=== PATIENT | male | born 1990 | race Caucasian/White ===

== ENCOUNTER 2019-03-25 18:17 | Emergency (ER) | payer OTHER, SELFPAY | END 2019-03-25 21:07 | disposition home or self-care (01) | PROVIDERS: Emergency Provider Physician Assistant; Visit Provider Physician Assistant | DX: S22.088A Other fracture of T11-T12 vertebra, initial encounter for closed fracture (principal); W01.0XXA Fall on same level from slipping, tripping and stumbling without subsequent striking against object, initial encounter; Y99.0 Civilian activity done for income or pay | CPT/HCPCS: 72131; 96372; 96374; 99284; J2270 ==

== ENCOUNTER 2019-05-08 10:43 | Outpatient (CLI) | payer OTHER, SELFPAY ==
--- NOTE | 2019-05-08 11:00 | CT_ITS ---
WS: [id number] CT THORACIC SPINE HISTORY: pain/follow up from original injury TECHNIQUE: Contiguous 2.5 mm axial images are reviewed to thoracic spine. Images are reformatted in s agittal and coronal planes. All CT scans at [facility] use at least one of these dose opt imization techniques: automated exposure control; mA and/or kV adjustment per patient size (includes targeted exams where dose is matched to clinical indication); or iterative reconstruction. DLP: 1296.08 mGycm COMPARISON: 10/10/2017 Mild straightening of the normal lumbar lordosis. T11 Schmorl's node defect is stable. No acute fract ure is identified. Similar appearance to the vertebral bodies as seen on the prior study of 10/10/2017 . Recently described fracture through the RIGHT T12 or L1 transverse process. 12 thoracic vertebral b odies are identified which are rib-bearing. The first nonrib-bearing vertebral bodies L1 which contai ns the previously described fracture. Irregardless of the numbering system there has been no interval change. No acute fractures are identified. No significant central or foraminal narrowing throughout the thoracic spine. Mild chronic disc space narrowing at T10-11. CT/CT thoracic spin wo con* [id number] IMPRESSION: 1. Interval partial healing of the nondisplaced fracture involving the RIGHT L 1 transverse process. There are 12 thoracic vertebral bodies and the first nonr ib-bearing vertebral body is L1 which contains a partially healed fracture. 2. No new fracture or progression of disease. Mild degenerative disc disease a t T10-11.
== END 2019-05-08 10:44 | disposition home or self-care (01) ==
LOC: RADWPI 10:46
PROVIDERS: PCP General Practice; Visit Provider Family Medicine
DX: S22.089A Unspecified fracture of T11-T12 vertebra, initial encounter for closed fracture (principal); X58.XXXA Exposure to other specified factors, initial encounter
CPT/HCPCS: 72128

== ENCOUNTER → 2021-04-09 08:33 | Outpatient (BNVA) | payer OTHER, SELFPAY | PROVIDERS: PCP Nurse Practitioner Family; Visit Provider Nurse Practitioner Family | DX: Z20.828 Contact with and (suspected) exposure to other viral communicable diseases (principal) | CPT/HCPCS: 87635 ==

== ENCOUNTER → 2022-01-15 11:06 | Outpatient (BNVA) | payer OTHER, SELFPAY | PROVIDERS: PCP Nurse Practitioner Family; Visit Provider Nurse Practitioner Family | DX: M79.671 Pain in right foot (principal); S97.81XA Crushing injury of right foot, initial encounter; X58.XXXA Exposure to other specified factors, initial encounter | CPT/HCPCS: 73630 ==

== ENCOUNTER → 2022-01-21 12:46 | Outpatient (BNVA) | payer OTHER, SELFPAY | PROVIDERS: PCP Emergency Medicine Emergency Medical Services; Referring Provider Emergency Medicine Emergency Medical Services; Visit Provider Podiatrist Foot & Ankle Surgery | DX: S97.81XA Crushing injury of right foot, initial encounter (principal); X58.XXXA Exposure to other specified factors, initial encounter; M25.372 Other instability, left ankle | CPT/HCPCS: 73610; 99204 ==

== ENCOUNTER 2022-03-25 13:32 | Outpatient (CLI) | payer OTHER, SELFPAY ==
--- NOTE | 2022-03-25 13:45 | MR_ITS ---
WS: [id number] MRI LEFT ANKLE without CONTRAST. COMPARISON: None Multiplanar, multisequence imaging is performed without contrast. Abnormal signal involving several of the bones involving the foot. Increased T2 signal consistent wit h edema in the anterior process of the calcaneus. There is an adjacent 4 mm mass which follows bone s ignal, suspect this is probably a small avulsion fracture from the anterior calcaneus. There is edema within the adjacent navicular and also the cuboid. There is increased T2 signal extending between th e articulation between the navicular and the calcaneus and the cuboid. There is no signal abnormality in the sinus Tarsi. The remaining calcaneus is negative. Ligaments and tendons around the ankle joint are normal. Achilles tendon is negative. No talar dome l esions. MR/MR ankle LT wo con* [id number] IMPRESSION: 1. Soft tissue and bone signal abnormalities are noted in the anterior calcane al process, adjacent cuboid and the adjacent navicular. There is a loose body w hich I suspect is probably an avulsion fracture from the anterior calcaneal pro cess. Considering the marrow edema in the osseous structures and soft tissues t here is likely a component of instability present. 2. Consider reevaluation by CT, noncontrast of the ankle to better evaluate os seous abnormalities.
== END 2022-03-25 13:33 | disposition home or self-care (01) ==
LOC: RAD 13:32
PROVIDERS: PCP Emergency Medicine Emergency Medical Services; Visit Provider Podiatrist Foot & Ankle Surgery
DX: M25.572 Pain in left ankle and joints of left foot (principal)
CPT/HCPCS: 73721

== ENCOUNTER 2023-01-17 08:12 | Emergency (ER) | payer OTHER, SELFPAY ==
[2023-01-17 08:12] VITALS: BP 145/79; PULSE 79; RESP 20; TEMP 37; O2SAT 98; BMI 30.6
--- NOTE | 2023-01-17 08:18 | XR_ITS ---
WS: [id number] Exam: [place] [id number] Date/Time of Exam: 01/17/2023 8:58 AM Reason For Exam: trauma There is a midshaft fracture of the LEFT clavicle with [id number] apposition. No other fractures ar e noted. Soft tissues are unremarkable. IMPRESSION: 1. Mid shaft LEFT clavicle fracture with [id number] apposition.
--- NOTE | 2023-01-17 08:18 | CT_ITS ---
WS: [id number] CT CHEST, ABDOMEN AND PELVIS WITH CONTRAST HISTORY: trauma TECHNIQUE: Contiguous 5 mm axial imaging performed through the chest, abdomen and pelvis with IV cont rast, oral contrast has not been provided. Coronal and sagittal reformats chest. Coronal and sagittal reformats through the abdomen and pelvis. All CT scans at [facility] use at least one of the se dose optimization techniques: automated exposure control; mA and/or kV adjustment per patient size (includes targeted exams where dose is matched to clinical indication); or iterative reconstruction. CONTRAST: Omnipaque 350; 100 mL IV. DLP: 2006.29 mGy.cm COMPARISON: None available. Chest CT: Breathing motion artifact. Poor inspiration. No pulmonary mass or contusion. No laceration or pneumothorax. No pericardial or pleural effusions. Thoracic aorta appears normal size. Motion segundo fact due to the breathing causing significant limitation of the ascending aorta. No mediastinal hemat raz. Very mild increased attenuation in the anterior mediastinum which is probably related to small a mount of venous bleeding or residual thymus. Heart is normal size. Minimally displaced fracture involving the mid LEFT clavicle. No additional fractures. No rib facture . The thoracic vertebral bodies appear normal. Abdomen CT: Liver and spleen are intact. No laceration or hematoma. Negative gallbladder and adrenal glands. Normal pancreas. Normal renal enhancement. 5 mm cyst lower pole RIGHT kidney. Normal aorta. N o mesenteric injury identified. No GI tract obstruction or abnormality. Ventral abdominal wall hernia . There are several small lymph nodes in the RIGHT lower quadrant with the largest measuring 9 mm. 5 nonrib-bearing vertebral bodies. S1 is lumbarized. Acute fracture involving the anterior superior endplate of L5. No retropulsion of the vertebral body. There is also mild anterior wedging involving the superior endplate of L2 indeterminate for acute fr acture. Pelvic CT: No free fluid. Urinary bladder is negative. No soft tissue hematoma or contusion. IMPRESSION: 1. Acute minimally displaced mid LEFT clavicle fracture. 2. Acute L5 anterior superior endplate fracture. No retropulsion. 3. Very minimal anterior wedging of L2, age indeterminate fracture. 4. Thoracic aorta is poorly visualized due to motion artifact. No hematoma identified. 5. There is a small amount of fat stranding in the anterior mediastinum which is probably a small marcio unt of venous bleeding or residual thymic tissue. 6. No visceral organ injury. 7. No ascites or hemoperitoneum. 8. no pneumothorax or pulmonary contusion.
--- NOTE | 2023-01-17 08:18 | CT_ITS ---
WS: [id number] CT CERVICAL SPINE HISTORY: trauma TECHNIQUE: Contiguous 2.0 mm axial imaging performed through the entire cervical spine. Sagittal and coronal reformats also performed. All CT scans at [facility] use at least one of these dose o ptimization techniques: automated exposure control; mA and/or kV adjustment per patient size (include s targeted exams where dose is matched to clinical indication); or iterative reconstruction. DLP: 1241.39 mGy.cm COMPARISON: None available. Normal cervical alignment. Craniocervical junction, atlantodental interval and C1-C2 alignment is nor mal. C2-C3: Normal. C3-C4: Normal. C4-C5: Small vertebral osteophyte. No stenosis. C5-C6: Normal. C6-C7: Normal. C7-T1: Normal. Small bilateral cervical chain lymph nodes. Lung apices are clear. Noted on the localizer image is a fracture through the mid LEFT clavicle. IMPRESSION: 1. No cervical spine fracture identified. 2. Seen on the localizer image is a minimally displaced fracture through the mid LEFT clavicle.
--- NOTE | 2023-01-17 08:19 | CT_ITS ---
WS: [id number] CT HEAD NONCONTRAST HISTORY: trauma TECHNIQUE: Contiguous axial imaging performed through the brain in 2.5 mm imaging. Bone and soft tiss ue windows. Sagittal and coronal reformats reviewed. All CT scans at [facility] use at least one of these dose optimization techniques: automated exposure control; mA and/or kV adjustment per pa tient size (includes targeted exams where dose is matched to clinical indication); or iterative recon struction. DLP: 1241.39 mGy.cm COMPARISON: 10/10/2017 No acute intracranial hemorrhage, midline shift or mass effect. No atrophy or prior infarcts or herniation. Ventricles: Normal size with no hydrocephalus. No inferior displacement of cerebellar tonsils. Paranasal sinuses: Marked mucoperiosteal thickening throughout the maxillary sinuses. The sinuses kelly ear intact. Extension of the mucoperiosteal thickening into the ethmoid air cells. Zygomatic arches a nd visualized nasal bones are intact. Mastoid air cells: Well pneumatized. Calvarium and scalp: Skull is intact with no soft tissue edema or swelling. IMPRESSION: 1. No acute intracranial hemorrhage or edema. 2. Marked mucoperiosteal thickening and soft tissue throughout the ethmoid and maxillary sinuses. Fav or this is related to chronic sinus disease. No fractures identified.
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
[2023-01-17 08:41] LABS: Basophils # 0.1 10^3/uL (0.0-0.1); Basophils % 1.2 %; Eosinophils # 0.3 10^3/uL (0.0-0.8); Eosinophils % 3.7 %; Lymphocytes % 38.8 %; Mean Corpuscular HGB Conc 34.7 g/dL (30-55); Mean Corpuscular Volume 86.5 fl (82-101); Mean Platelet Volume 9.1 fL (7.4-10.4); Monocytes # 0.2 10^3/uL (0.2-0.9); Monocytes % 3.2 %; Neutrophils # 3.84 10^3/uL (1.8-7.7); Neutrophils % 50.3 %; Nucleated Red Blood Cells % 0 %; Platelet Count 259 10^3/cmm (157-399); Red Cell Distribution Width 11.9 % (12.1-15.1); White Blood Count 7.61 10^3/uL (3.29-11.43)
[2023-01-17 09:04] LABS: Alanine Aminotransferase 23 U/L (0-41); Albumin Level 4.4 g/dL (3.5-5.2); Alkaline Phosphatase 64 U/L (40-130); Anion Gap 10.6 (5-19); Aspartate Amino Transferase 23 U/L (0-40); Blood Urea Nitrogen 12 mg/dL (6-20); Calcium 9.2 mg/dL (8.5-10.5); Carbon Dioxide 27 mmol/L (22-29); Chloride 106 mmol/L (98-107); Globulin 2.7 g/dL (1.3-4.6); Glucose 128 mg/dL (65-115); Osmolality Calculated 291 mOsm/kg (285-295); Potassium 3.6 mmol/L (3.5-5.1); Sodium 140 mmol/L (136-145); Total Bilirubin 0.3 mg/dL (0.15-1.2); Total Protein 7.1 g/dL (6.6-8.7)
[2023-01-17] MEDS: iohexol 350 mg/mL 500 mL Btl (per mL) IV (09:06)
[2023-01-17] MEDS: sodium chloride 0.9% 1,000 ML 999 ML IV (09:10)
[2023-01-17] MEDS: tetanus-dipt-pertussis 0.5 mL SDV IM (09:12)
[2023-01-17 09:38] VITALS: RESP 18; O2SAT 98
[2023-01-17] MEDS: morphine 4 mg/mL SDV 1 mL 2 MG IVP ×2 (09:38→11:47)
[2023-01-17 09:41] VITALS: BP 145/79; PULSE 88; RESP 18; O2SAT 97
[2023-01-17 10:04] LABS: Add Urine Microscopic? NO; Charge for UA Resulting for Rev
[2023-01-17 10:12] LABS: Bilirubin Urine Neg (Negative); Blood Urine Neg (Negative); Glucose Urine UA Norm (Normal); Ketones Urine Negative (Negative); Leukocyte Esterase Urine Negative (Negative); Nitrate Urine Negative (Negative); Protein Urine Neg (Negative); Specific Gravity, Urine 1.015 (1.005-1.030); Urine Appearance Clear (CLEAR); Urine Color Yellow (Yellow); Urobilinogen Urine Norm (Negative); pH Urine 6 (5-7)
== END 2023-01-17 12:19 | disposition home or self-care (01) ==
PROVIDERS: Emergency Provider Family Medicine; PCP Emergency Medicine Emergency Medical Services
DX: S42.022A Displaced fracture of shaft of left clavicle, initial encounter for closed fracture (principal); S32.058A Other fracture of fifth lumbar vertebra, initial encounter for closed fracture; S32.020A Wedge compression fracture of second lumbar vertebra, initial encounter for closed fracture; E78.5 Hyperlipidemia, unspecified; V89.2XXA Person injured in unspecified motor-vehicle accident, traffic, initial encounter; Z23 Encounter for immunization
CPT/HCPCS: 70450; 71260; 72125; 73000; 74177; 80053; 81003; 85025; 86850; 86900; 90471; 90715; 96361; 96374; 96376; 99285; J2270; J7030; Q9967

== ENCOUNTER → 2023-01-25 09:50 | Outpatient (BNVA) | payer OTHER, SELFPAY | PROVIDERS: PCP Emergency Medicine Emergency Medical Services; Visit Provider Physician Assistant | DX: V89.2XXA Person injured in unspecified motor-vehicle accident, traffic, initial encounter (principal); S42.022A Displaced fracture of shaft of left clavicle, initial encounter for closed fracture; S32.020A Wedge compression fracture of second lumbar vertebra, initial encounter for closed fracture; S32.050A Wedge compression fracture of fifth lumbar vertebra, initial encounter for closed fracture | CPT/HCPCS: 72110; 73000 ==

== ENCOUNTER 2023-02-01 14:05 | Outpatient (CLI) | payer OTHER, SELFPAY ==
--- NOTE | 2023-02-01 14:30 | MR_ITS ---
WS: [id number] MRI LUMBAR SPINE NONCONTRAST TECHNIQUE: Sagittal T1, T2 and STIR imaging. Axial T1 and T2 imaging. CLINICAL INFORMATION: fracture COMPARISON: CT 2019 FINDINGS: Mild lumbar curve. Mild compression superior endplates L2 and L5 with edema. Mild loss vertebral body height with slight anterior wedging. No retropulsion. L1-L2: Mild annular bulging. Mild facet arthropathy. Spinal canal and foramen are patent. L2-L3: Mild annular bulging. Mild facet arthropathy. Spinal canal and foramen are patent. L3-L4: Mild annular bulging. Mild facet arthropathy. Spinal canal and foramen are patent. L4-L5: Mild annular bulging with slight effacement of the ventral thecal sac. Moderate facet arthropa thy. Spinal canal and foramen are patent. L5-S1: Mild annular bulging with slight effacement of the ventral thecal sac. Moderate facet arthropa thy. Spinal canal and foramen are patent. Visualized pelvic bony structures: Normal. Paravertebral soft tissues: Normal. IMPRESSION: 1. Acute compression fracture super endplates L2 and L5 with associated edema and slight anterior we dging. Mild loss of vertebral body height. No retropulsion. 2. No significant central canal stenosis. 3. Mild annular bulging at L1-2, L2-3, L3-4, and L4-5 without significant spinal canal or foraminal narrowing. 4. Counting performed from the craniocervical junction. S1 has a transitional appearance.
== END 2023-02-01 14:06 | disposition home or self-care (01) ==
LOC: RAD 14:05
PROVIDERS: PCP Emergency Medicine Emergency Medical Services; Visit Provider Physician Assistant
DX: S32.020A Wedge compression fracture of second lumbar vertebra, initial encounter for closed fracture (principal); S32.050A Wedge compression fracture of fifth lumbar vertebra, initial encounter for closed fracture; V43.92XA Unspecified car occupant injured in collision with other type car in traffic accident, initial encounter; Y92.414 Local residential or business street as the place of occurrence of the external cause
CPT/HCPCS: 72148

== ENCOUNTER → 2023-02-08 10:50 | Outpatient (BNVA) | payer OTHER, SELFPAY | PROVIDERS: PCP Emergency Medicine Emergency Medical Services; Visit Provider Physician Assistant | DX: S42.002A Fracture of unspecified part of left clavicle, initial encounter for closed fracture (principal); X58.XXXA Exposure to other specified factors, initial encounter | CPT/HCPCS: 73000 ==

== ENCOUNTER 2023-02-08 11:39 | Outpatient (CLI) | payer OTHER, SELFPAY | END 2023-02-08 11:40 | disposition home or self-care (01) | LOC: SPT 11:40 | PROVIDERS: PCP Emergency Medicine Emergency Medical Services; Visit Provider Physician Assistant | DX: Z46.89 Encounter for fitting and adjustment of other specified devices (principal); S32.059D Unspecified fracture of fifth lumbar vertebra, subsequent encounter for fracture with routine healing; S32.029D Unspecified fracture of second lumbar vertebra, subsequent encounter for fracture with routine healing; X58.XXXD Exposure to other specified factors, subsequent encounter | CPT/HCPCS: 97760; L0637 ==

== ENCOUNTER 2023-02-11 10:15 | Day surgery (SDC) | payer OTHER, SELFPAY ==
[2023-02-11] VITALS (15 sets, daily range): BP systolic 92–151; BP diastolic 50–103; PULSE 56–85; RESP 16–18; TEMP 35.4–37.1; O2SAT 92–98; BMI 30.6
--- NOTE | 2023-02-11 | XR_ITS ---
WS: [id number] C-ARM RADIOGRAPHS LEFT CLAVICLE; 5 IMAGES HISTORY: OR PICS-DONE ON 02/11 COMPARISON: 02/08/2023 Intraoperative imaging during plate and screw fixation and reduction of the LEFT clavicle fracture. A lignment appears appropriate on this evaluation. IMPRESSION: ORIF plate and screw fixation LEFT clavicle fracture.
--- NOTE | 2023-02-11 10:44 | ANES.PREANE2 ---
Pre-Anesthetic Assessment Height/Weight: Height 1.85 m Weight 105.233 kg Temp Pulse Resp BP Pulse Ox O2 Del Method 98.7 F 84 16 151/103 96 Room Air 02/11/23 10:38 02/11/23 10:38 02/11/23 10:38 02/11/23 10:38 02/11/23 10:38 02/11/23 10:38 Preop Diagnosis: Displaced left clavicle fracture Operation Date: 02/11/23 12:05 Proposed Procedures p left ORIF Clavicle(Left) - Rafael Ribera, Familial anesthetic complications: None Was Beta Umesh taken within 24 hours: N/A Was Clonidine taken within 24 hours: N/A Last intake: Intake Last Liquid Date 02/10/23 Last Liquid Time 22:00 Last Solid Date 02/10/23 Last Solid Time 19:00 Social No alcohol and No tobacco Exam alert, oriented x 3, clear to auscultation bilaterally and regular rate & rhythm Airway Mallampati: Class II Dentition: full Metabolic Hyperlipidemia Anesthetic Plan ASA status: 2 Anesthesia: General Risk of > 500 ml blood loss (7ml/kg in children): No Medications/Allergies Home Medications Medication Instructions Recorded Confirmed Last Taken Type cetirizine 10 mg tablet (Zyrtec) 10 mg PO DAILY 03/28/19 02/10/23 02/10/23 History Custom Orthotics #1 ea 01/21/22 02/10/23 Unknown Rx cholecalciferol (vitamin D3) 50 50 mcg PO DAILY 01/17/23 02/10/23 02/10/23 History mcg (2,000 unit) capsule (Vitamin D3) tizanidine 4 mg tablet 4 mg PO Q6H PRN muscle spasticity 01/25/23 02/10/23 Unknown Rx #20 tabs TLSO BRACE. #1 ea 02/08/23 02/10/23 Unknown Rx magnesium 30 mg tablet 30 mg PO DAILY 02/10/23 02/10/23 02/10/23 History Allergies Allergy/AdvReac Type Severity Reaction Status Date / Time No Known Allergies Allergy Verified 02/11/23 10:33 [facility] Anesthesia Medical History Hyperlipidemia Social History Smoking and tobacco/nicotine status: never used tobacco/nicotine Alcohol intake: never Data Anesthesia Cardiac Studies: No Data to Display
[2023-02-11] MEDS: sodium chloride 0.9% 1,000 ML 30 ML IV (10:57)
[2023-02-11] MEDS: scopolamine 1.5 Patch 1 PATCH TRANSDERMA (11:35)
--- NOTE | 2023-02-11 12:02 | W.PM.OPSUD ---
Surgery/Procedure H&P Update DATE OF PROCEDURE: February 11, 2023 DATE H&P PERFORMED: 02/08/23 H&P UPDATE INFORMATION: I have reviewed H&P completed within last 30 days, I have examined patient prior to procedure and No changes to prior documentation PREOP DIAGNOSIS: Displaced left clavicle fracture PLANNED PROCEDURE: Operation Date: 02/11/23 12:05 Proposed Procedures p left ORIF Clavicle(Left) - Rafael Ribera DO
[2023-02-11] MEDS: ceFAZolin 2,000 MG in sodium chloride 0.9% (plus) 50 ML 100 MG IV (12:15)
[2023-02-11] MEDS: lidocaine-epi 1% 20 mL INJ INJECTION (12:44)
--- NOTE | 2023-02-11 13:39 | P.OP_ITS ---
Operative Report Date of procedure: February 11, 2023 Pre-op diagnosis: Left clavicle fracture Post-op diagnosis: same Procedure done: Open reduction internal fixation of left clavicle fracture Surgeon: Rafael Ribera DO Shipping And Receiving Assistant: Mk Clemons Shipping And Receiving Assistant: The dental assistant instructor, Mk Clemons, MARC was needed for his expertise with fracture care. He was important and necessary throughout the procedure to complete in a safe and timely manner. He assisted with patient positioning prepping and draping tissue retraction suctioning of the operative field and tissue closure Estimated blood loss (mL): 50 Procedure: Open reduction internal fixation of left clavicle fracture Patient is brought to the op suite after undergoing anesthesia was placed in supine position. All areas impingement well-padded. Skin was made over the clavicle. Dissection was made down to the fracture. Elevator was used to release the muscle off of the bone with a subperiosteal dissection and then the fracture ends were identified. Fracture ends were cleaned some early callus formation. This was scraped off using curettes and rongeur. Fracture fragments were then reduced to lag screws were placed across the fracture fragments. And then a superior plate from Ruben was placed. 3 screws were placed proximal and distal to the fracture AP lateral and serendipitous view of the clavicle showed good position of all the screws and hardware. Fracture look to be reduced. Wounds were then irrigated and closed with Vicryl and Monocryl suture. Sterile dressings were applied and patient was transferred to the PACU in stable condition.
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
[2023-02-11] MEDS: HYDROcodone-acetaminophen 5-325 mg Tablet 1 TAB PO (15:31)
--- NOTE | 2023-02-11 15:45 | ANE.PACU2 ---
Inpatient post-anesthesia follow up: Airway intact: Yes Vital signs: Temperature 96 F Pulse Rate 57 Respiratory Rate 16 Blood Pressure 116/77 Pulse Oximetry 95 Oxygen Delivery Me thod Room Air Oxygen Flow Rate 6 Fraction of Inspir ed Oxygen Hydration adequate: Yes Nausea and vomiting: No Pain level: 1 Mental status: Baseline
== END 2023-02-11 15:48 | disposition home or self-care (01) ==
PROVIDERS: PCP Emergency Medicine Emergency Medical Services; Visit Provider Orthopaedic Surgery
PROC: (CPT 23515; principal; 2023-02-11 12:05)
DX: S42.002A Fracture of unspecified part of left clavicle, initial encounter for closed fracture (principal); X58.XXXA Exposure to other specified factors, initial encounter; E78.5 Hyperlipidemia, unspecified
CPT/HCPCS: 23515; 73000; 76000; C1713; J0131; J0690; J1100; J1170; J2250; J2405; J2704; J3010; J7030

== ENCOUNTER → 2023-02-24 13:21 | Outpatient (BNVA) | payer OTHER, SELFPAY | PROVIDERS: PCP Emergency Medicine Emergency Medical Services; Visit Provider Physician Assistant | DX: S32.050D Wedge compression fracture of fifth lumbar vertebra, subsequent encounter for fracture with routine healing; S32.020D Wedge compression fracture of second lumbar vertebra, subsequent encounter for fracture with routine healing; S42.022A Displaced fracture of shaft of left clavicle, initial encounter for closed fracture; X58.XXXD Exposure to other specified factors, subsequent encounter; X58.XXXA Exposure to other specified factors, initial encounter | CPT/HCPCS: 72100; 73000 ==

== ENCOUNTER → 2023-03-24 09:30 | Outpatient (BNVA) | payer OTHER, SELFPAY | PROVIDERS: PCP Emergency Medicine Emergency Medical Services; Visit Provider Physician Assistant | DX: S42.002D Fracture of unspecified part of left clavicle, subsequent encounter for fracture with routine healing (principal); S32.020D Wedge compression fracture of second lumbar vertebra, subsequent encounter for fracture with routine healing; S32.050D Wedge compression fracture of fifth lumbar vertebra, subsequent encounter for fracture with routine healing; X58.XXXD Exposure to other specified factors, subsequent encounter | CPT/HCPCS: 73000 ==

== ENCOUNTER → 2023-04-26 14:35 | Outpatient (BNVA) | payer OTHER, SELFPAY | PROVIDERS: PCP Emergency Medicine Emergency Medical Services; Visit Provider Orthopaedic Surgery | DX: S32.020D Wedge compression fracture of second lumbar vertebra, subsequent encounter for fracture with routine healing (principal); S32.050D Wedge compression fracture of fifth lumbar vertebra, subsequent encounter for fracture with routine healing; X58.XXXD Exposure to other specified factors, subsequent encounter | CPT/HCPCS: 73000 ==

== ENCOUNTER 2023-05-05 06:00 | Outpatient (RCR) | payer OTHER, SELFPAY | END 2023-05-26 23:59 | disposition home or self-care (01) | LOC: TPT 06:00 | PROVIDERS: Visit Provider Orthopaedic Surgery | DX: M25.512 Pain in left shoulder (principal); M54.50 Low back pain, unspecified | CPT/HCPCS: 97110; 97162 ==

== ENCOUNTER 2023-05-27 06:00 | Outpatient (RCR) | payer OTHER, SELFPAY | END 2023-06-26 23:59 | disposition home or self-care (01) | LOC: TPT 06:00 | PROVIDERS: Visit Provider Orthopaedic Surgery | DX: M25.512 Pain in left shoulder (principal); M54.50 Low back pain, unspecified | CPT/HCPCS: 97110 ==

== ENCOUNTER → 2023-06-07 14:30 | Outpatient (BNVA) | payer OTHER, SELFPAY | PROVIDERS: Visit Provider Orthopaedic Surgery | DX: S42.022A Displaced fracture of shaft of left clavicle, initial encounter for closed fracture; X58.XXXA Exposure to other specified factors, initial encounter | CPT/HCPCS: 73000 ==

== ENCOUNTER → 2024-01-11 10:18 | Outpatient (BNVA) | payer OTHER, SELFPAY | PROVIDERS: Visit Provider Podiatrist Foot & Ankle Surgery | DX: M79.672 Pain in left foot (principal); M25.572 Pain in left ankle and joints of left foot; Q66.71 Congenital pes cavus, right foot; Q66.72 Congenital pes cavus, left foot; R03.0 Elevated blood-pressure reading, without diagnosis of hypertension | CPT/HCPCS: 73610; 73620; 99213 ==

== ENCOUNTER 2024-01-18 11:44 | Outpatient (CLI) | payer OTHER, SELFPAY ==
--- NOTE | 2024-01-18 11:49 | USCV_ITS ---
BandaOtisSteve Age: 34 Gender: M : 1990 Exam Date: 01/18/2024 12:02 Ordering Phys: Steffi Altman APRN Technologist: CT Exam [place] [facility] [place] Indication: BP: 119 / 80 HR: 72 Rhythm: Sinus Technical Quality: Adequate MEASUREMENTS (Male / Female) Normal Values 2D ECHO LVOT Diameter 2.2 cm LV Ejection Fraction MOD 4C 68.7 % LV Ejection Fraction MOD 2C 58.2 % LV Ejection Fraction 2C AL 58.0 % LA Diameter 3.4 cm RA Systolic Volume 4C AL 29.4 ml RA Systolic Volume 4C MOD 29.3 ml LA Sys Volume AL 56.4 cm cubed LA Sys Volume Index AL 23.0 cm cubed/m squared Aorta at Sinotubular Diameter 2.6 cm M-MODE LA Ao Ratio MM 1.7 AV Cusp Separation MM 2.4 cm DOPPLER AV Peak Velocity 127.0 cm/s LVOT Peak Velocity 103.0 cm/s AV Area Cont Eq vti 3.4 cm squared AV Area Cont Eq pk 3.2 cm squared MV Peak Velocity 73.0 cm/s MV Area PHT 2.7 cm squared Mitral E to A Ratio 1.3 TV Peak Velocity 145.0 cm/s TR Peak Velocity 180.0 cm/s TR Peak Gradient 13.0 mmHg TV Peak E Velocity 91.0 cm/s Right Atrial Pressure 3.0 mmHg Pulmonary Artery Systolic Pressu 16.0 mmHg PV Peak Velocity 120.5 cm/s FINDINGS Left Ventricle Normal left ventricular size and systolic function, EF 58% . No regional wall motion abnormalities. Right Ventricle The right ventricle is normal in size and function. Right Atrium The right atrium is normal in size. Left Atrium The left atrium is normal in size. Mitral Valve Structurally normal mitral valve without significant stenosis or prolapse. There is no mitral regurgitation. Aortic Valve Structurally normal aortic valve without significant sclerosis or stenosis. There is no aortic regurgitation. Tricuspid Valve Structurally normal tricuspid valve without significant stenosis or regurgitation. Pulmonary artery systolic pressure is normal. Pulmonic Valve Structurally normal pulmonic valve without significant stenosis. There is no pulmonic regurgitation. Pericardium Normal pericardium without effusion. Aorta Normal aortic annulus size. IVC Normal inferior vena cava. CONCLUSIONS Normal left ventricular size and systolic function, EF 58% . No regional wall motion abnormalities. Normal cardiac chamber sizes. No gross valvular abnormalities. No intracardiac masses No intracardiac shunts by color-flow Doppler examination There is no pericardial effusion. No similar previous studies are available for comparison Dr Keely Weiss MD FAC (Electronically Signed) Final Date: 21 January 2024 16:43 S
== END 2024-01-18 11:45 | disposition home or self-care (01) ==
LOC: RAD 11:45
PROVIDERS: PCP Nurse Practitioner Family; Visit Provider Nurse Practitioner Family
DX: Z01.89 Encounter for other specified special examinations (principal)
CPT/HCPCS: 93306

== ENCOUNTER → 2025-03-26 11:02 | Outpatient (BNVA) | payer OTHER, SELFPAY | PROVIDERS: PCP Nurse Practitioner Family; Visit Provider Podiatrist Foot & Ankle Surgery | DX: Q66.71 Congenital pes cavus, right foot (principal); Q66.72 Congenital pes cavus, left foot; R03.0 Elevated blood-pressure reading, without diagnosis of hypertension | CPT/HCPCS: 99213 ==